=== PATIENT | female | born 1945 | race Caucasian/White ===

== ENCOUNTER 2017-08-24 16:09 | Emergency (ER) | payer BC, OTHER ==
--- OUTSIDE RECORDS SUMMARY | 2017-08-24 16:11 | XMS REPORT ---
:1945 [facility] [address] [place] [address] Dr. Parson. [address] [place] [id number] Care Team Providers Name Role Phone Kady ACKERMAN Unavailable Unavailable Problems This patient has no known problems. Allergies, Adverse Reactions, Alerts This patient has no known allergies or adverse reactions. Medications This patient has no known medications. Results Test Description Test Time Test Comments Text Results Atomic Results Result Comments POCT-CREATININE 2016-10-22 13:41:00 Test Item Value Reference Range Comments POC-CREATININE (BEAKER) (test 0.6 mg/dL 0.6-1.3 TESTED AT [facility] 6720 [id number]) [facility] [id number] POC-EGFR (BEAKER) (test [id number]) 99 mL/min/1.73M2
[2017-08-24 17:32] LABS: Absolute Lymphocytes (CBC) 2.7 K/uL (0.7-4.9); Absolute Monocytes 1.3 K/uL (0.1-1.3); Basophils % 0.6 % (0-1.3); Eosinophils % 2.7 % (0-4.4); Hematocrit 41.8 % (36.0-45.0); Lymphocytes % 17.3 % (15.3-44.8); MCH 26.2 pg (27.0-35.0); MCV 80.6 fL (80-100); MPV 7.5 fL (7.6-11.3); Monocytes % 8.1 % (3.3-12.3); RBC Red Blood Cell Count 5.19 M/uL (3.86-4.86)
--- NOTE | 2017-08-24 17:46 | EDPHYS ---
Physician Documentation [facility] Name: Alicia Alexander Age: 71 yrs Sex: Female : 1945 Arrival Date: 08/24/2017 Time: 16:12 Bed 17 Private MD: ED Physician Joel Brunson HPI: 08/24 17:06 This 71 yrs old Female presents to ER via Ambulatory with complaints of Nose kb Bleed. 17:06 The patient presents with a nose bleed, that is continuous bright red, with clots, and kb the bleeding resolved prior to arrival. Onset: The symptoms/episode began/occurred at 14:00. Modifying factors: The symptoms are alleviated by nothing. the symptoms are aggravated by nothing. Associated signs and symptoms: The patient has no apparent associated signs or symptoms, Loss of consciousness: the patient experienced no loss of consciousness. Severity of symptoms: At their worst the symptoms were moderate in the emergency department the symptoms have resolved and did so earlier today. The patient has experienced similar episodes in the past, a few times. The patient has not recently seen a physician. Pt reports she had a nosebleed for 18 minutes starting at 1400. States she had a nosebleed on Saturday as well, but today it had a lot of clots so she wanted to make sure her blood count was ok. Historical: - Allergies: 16:48 No Known Allergies; hb - Home Meds: 16:48 Flexeril 10 mg Oral tab [Active]; Ambien 5 mg Oral tab 1 tab once daily [Active]; hb atenolol 50 mg Oral tab 1 tab 2 times per day [Active]; Vytorin 10-20 10-20 mg oral tab 1 tab once daily [Active]; loratadine oral oral [Active]; fluticasone 0.05 % topical lotn once daily [Active]; metformin 500 mg Oral Tb24 1 tab 2 times per day [Active]; Synthroid Oral [Active]; esomeprazole magnesium 20 mg oral cpDR 1 cap once daily [Active]; - PMHx: 16:48 Pituitary Tumor; Diabetes - NIDDM; Hypertension; hb - PSHx: 16:48 tumor resection; Hysterectomy; hb - Immunization history:: Adult Immunizations up to date. - Social history:: Smoking status: Patient/guardian denies using tobacco. ROS: 17:06 Constitutional: Negative for fever, chills, and weight loss, Cardiovascular: Negative kb for chest pain, palpitations, and edema, Respiratory: Negative for shortness of breath, cough, wheezing, and pleuritic chest pain, Abdomen/GI: Negative for abdominal pain, nausea, vomiting, diarrhea, and constipation, MS/Extremity: Negative for injury and deformity, Skin: Negative for injury, rash, and discoloration, Neuro: Negative for headache, weakness, numbness, tingling, and seizure. 17:06 ENT: Positive for nose bleed. Exam: 17:06 Constitutional: This is a well developed, well nourished patient who is awake, alert, kb and in no acute distress. Head/Face: Normocephalic, atraumatic. ENT: Nares patent. No nasal discharge, no septal abnormalities noted. Tympanic membranes are normal and external auditory canals are clear. Oropharynx with no redness, swelling, or masses, exudates, or evidence of obstruction, uvula midline. Mucous membranes moist. Chest/axilla: Normal chest wall appearance and motion. Nontender with no deformity. No lesions are appreciated. Cardiovascular: Regular rate and rhythm with a normal S1 and S2. No gallops, murmurs, or rubs. Normal PMI, no JVD. No pulse deficits. Respiratory: Lungs have equal breath sounds bilaterally, clear to auscultation and percussion. No rales, rhonchi or wheezes noted. No increased work of breathing, no retractions or nasal flaring. Abdomen/GI: Soft, non-tender, with normal bowel sounds. No distension or tympany. No guarding or rebound. No evidence of tenderness throughout. Skin: Warm, dry with normal turgor. Normal color with no rashes, no lesions, and no evidence of cellulitis. MS/ Extremity: Pulses equal, no cyanosis. Neurovascular intact. Full, normal range of motion. Neuro: Awake and alert, GCS 15, oriented to person, place, time, and situation. Cranial nerves II-XII grossly intact. Motor strength 5/5 in all extremities. Sensory grossly intact. Cerebellar exam normal. Normal gait. Vital Signs: 16:48 BP 148 / 98; Pulse 80; Resp 16; Temp 98.1; Pulse Ox 100% on R/A; Weight 104.33 kg; hb Height 5 ft. 3 in. (160.02 cm); Pain 0/10; 17:54 BP 160 / 90; Pulse 79; Resp 16; Pulse Ox 99% on R/A; rk2 16:48 Body Mass Index 40.74 (104.33 kg, 160.02 cm) hb MDM: 16:50 Patient medically screened. kb 17:06 Data reviewed: vital signs, nurses notes. Data interpreted: Pulse oximetry: on room air kb is 100 %. Interpretation: normal. 17:25 Counseling: I had a detailed discussion with the patient and/or guardian regarding: the kb historical points, exam findings, and any diagnostic results supporting the discharge/admit diagnosis, lab results, the need for outpatient follow up, an ENT specialist, to return to the emergency department if symptoms worsen or persist or if there are any questions or concerns that arise at home. 08/24 16:57 Order name: CBC with Diff kb 08/24 16:57 Order name: Basic Metabolic Panel kb 08/24 17:41 Order name: Basic Metabolic Panel; Complete Time: 17:42 EDMS 08/24 17:44 Order name: CBC with Automated Diff; Complete Time: 17:44 EDMS Administered Medications: No medications were administered Disposition: 08/24/17 17:45 Discharged to Home. Impression: Epistaxis. - Condition is Stable. - Discharge Instructions: Nosebleed, [id number]. - Medication Reconciliation Form, Thank You Letter, Antibiotic Education, Prescription Opioid Use form. - Follow up: Emergency Department; When: As needed; Reason: Worsening of condition. Follow up: Private Physician; When: 2 - 3 days; Reason: Recheck today's complaints, Continuance of care, Re-evaluation by your physician. Addendum: 08/26/2017 07:53 Co-signature as Attending Physician, Joel Brunson MD I agree with the assessment and c beltran plan of care. Signatures: Dispatcher [employer] EDYesi Johnson, [facility]-C [facility]-Joel Robbins MD MD cha Baxter, Heather, RN RN Iqra Reno, RN RN rk2
--- NOTE | 2017-08-24 17:46 | ER ---
Nurse's Notes [facility] Name: Alicia Alexander Age: 71 yrs Sex: Female : 1945 Arrival Date: 08/24/2017 Time: 16:12 Bed 17 Private MD: Diagnosis: Epistaxis Presentation: 08/24 16:42 Presenting complaint: Patient states: I had a horrible bloody nose Maame, and again hb today for 18 minutes. This time it looked scary and chunky. Hx pituitary tumor, frequent sinus infections, DM2. Transition of care: patient was not received from another setting of care. Onset of symptoms is unknown. Care prior to arrival: None. 16:42 Method Of Arrival: Ambulatory hb 16:42 Acuity: RU 3 hb Triage Assessment: 17:35 General: Appears in no apparent distress. rk2 17:35 General: Behavior is calm, cooperative. Pain: Denies pain. Neuro: No deficits noted. rk2 Level of Consciousness is alert, obeys commands, Oriented to person, place, time, situation. Respiratory: Airway is patent Respiratory effort is even, unlabored, Respiratory pattern is regular, symmetrical. Derm: Skin is pink, warm \T\ dry. Historical: - Allergies: 16:48 No Known Allergies; hb - Home Meds: 16:48 Flexeril 10 mg Oral tab [Active]; Ambien 5 mg Oral tab 1 tab once daily [Active]; hb atenolol 50 mg Oral tab 1 tab 2 times per day [Active]; Vytorin 10-20 10-20 mg oral tab 1 tab once daily [Active]; loratadine oral oral [Active]; fluticasone 0.05 % topical lotn once daily [Active]; metformin 500 mg Oral Tb24 1 tab 2 times per day [Active]; Synthroid Oral [Active]; esomeprazole magnesium 20 mg oral cpDR 1 cap once daily [Active]; - PMHx: 16:48 Pituitary Tumor; Diabetes - NIDDM; Hypertension; hb - PSHx: 16:48 tumor resection; Hysterectomy; hb - Immunization history:: Adult Immunizations up to date. - Social history:: Smoking status: Patient/guardian denies using tobacco. Screenin:35 Abuse screen: Denies threats or abuse. rk2 17:35 Nutritional screening: No deficits noted. Tuberculosis screening: No symptoms or risk rk2 factors identified. Fall Risk None identified. Vital Signs: 16:48 BP 148 / 98; Pulse 80; Resp 16; Temp 98.1; Pulse Ox 100% on R/A; Weight 104.33 kg; hb Height 5 ft. 3 in. (160.02 cm); Pain 0/10; 17:54 BP 160 / 90; Pulse 79; Resp 16; Pulse Ox 99% on R/A; rk2 16:48 Body Mass Index 40.74 (104.33 kg, 160.02 cm) hb ED Course: 16:12 Patient arrived in ED. sb2 16:45 Triage completed. hb 16:48 Arm band placed on right wrist. hb 16:50 Yesi Dave FNP-C [facility]. kb 16:50 Joel Brunson MD is Attending Physician. kb 16:58 Iqra Yadav, RN is Primary Nurse. rk2 17:35 Patient has correct armband on for positive identification. Bed in low position. Call rk2 light in reach. 17:55 No provider procedures requiring assistance completed. IV discontinued. rk2 Administered Medications: No medications were administered Outcome: 17:45 Discharge ordered by MD. kb 17:55 Discharged to home rk2 17:55 Condition: good 17:55 Discharge instructions given to patient. 17:59 Patient left the ED. rk2 Signatures: Yesi Dave FNP-C FNP-Ckb Baxter, Heather RN RN Iqra Yadav RN RN rk2 Jeanne Kahn sb2
== END 2017-08-24 17:59 | disposition home or self-care (01) ==
LOC: ER 16:09
DX: R04.0 Epistaxis (principal); I10 Essential (primary) hypertension; E11.9 Type 2 diabetes mellitus without complications
CPT/HCPCS: 36415; 80048; 85025; 99281